=== PATIENT | male | born 1950 | race Caucasian/White ===

== ENCOUNTER 2020-06-06 09:20 | Outpatient (REF) | payer MEDICARE, SELFPAY ==
[2020-06-06 11:12] LABS: Hematocrit 41.8 % (42-52); Hemoglobin 13.8 g/dl (14.0-18.0); Mean Corpuscular Hemoglobin 29.6 pg (27.0-33.0); Mean Corpuscular Volume 89.7 fL (80-98); Mean Platelet Volume 11.2 fL (9.4-12.4); Platelet Count 213 X10*3/uL (160-400); Red Blood Count 4.66 X10*6/uL (4.60-5.80); Red Cell Distribution Width 12.6 % (11.0-16.0); White Blood Count 5.9 X10*3/uL (4.8-10.8)
[2020-06-06 17:52] LABS: Alanine Aminotransferase 29 U/L (0-40); Albumin Level 4.4 g/dL (3.5-5.0); Alkaline Phosphatase 54 U/L (39-117); Anion Gap 11 (12-20); Aspartate Amino Transferase 20 U/L (5-37); Bilirubin Total 0.9 mg/dL (0.0-1.0); Blood Urea Nitrogen 16 mg/dL (9-16); Calcium 9.2 mg/dL (8.4-10.2); Carbon Dioxide 30 mmol/L (22-29); Chloride 105 mmol/L (96-108); Cholesterol 203 mg/dL; Estimated Glomerular Filt Rate > 60; Glucose Fasting 110 mg/dL (60-99); HDL Cholesterol 48 mg/dL; LDL Cholesterol Calculated 134 mg/dl; Sodium 142 mmol/L (135-145); Total Protein 6.7 g/dL (6.5-8.0); Triglycerides 107 mg/dL
[2020-06-06 18:06] LABS: Prostate Specific Antigen 1.64 ng/mL (<0.05-4.0)
== END 2020-06-06 09:21 | disposition home or self-care (01) ==
LOC: HO.MANLDS 09:20
PROVIDERS: PCP Internal Medicine; Visit Provider Internal Medicine
DX: Z12.5 Encounter for screening for malignant neoplasm of prostate (principal); E78.5 Hyperlipidemia, unspecified
CPT/HCPCS: 36415; 80053; 80061; 84153; 85027

== ENCOUNTER 2020-11-19 09:09 | Outpatient (REF) | payer MEDICARE, SELFPAY ==
[2020-11-19 11:21] LABS: MANUAL DIFF FLAG NO
[2020-11-19 11:41] LABS: Basophils Absolute Auto 0.1 X10*3/uL (0.0-0.2); Basophils Percent Auto 1.2 % (0-2); Eosinophils Absolute Auto 0.7 X10*3/uL (0.0-0.4); Eosinophils Percent Auto 9.6 % (0-4); Hematocrit 43.8 % (42-52); Hemoglobin 14.5 g/dl (14.0-18.0); Imm Gran Abs Auto 0.03 X10*3/uL (0.00-0.03); Imm Gran Pct Auto 0.4 % (0.0-0.4); Lymphocytes Absolute Auto 2.1 X10*3/uL (1.2-4.9); Lymphocytes Percent Auto 28.5 % (20-40); Mean Corpuscular HGB Conc 33.1 g/dl (31.0-36.0); Mean Corpuscular Hemoglobin 29.8 pg (27.0-33.0); Mean Corpuscular Volume 89.9 fL (80-98); Mean Platelet Volume 11.1 fL (9.4-12.4); Monocytes Absolute Auto 0.7 X10*3/uL (0.1-1.2); Monocytes Percent Auto 9.1 % (2-11); Neutrophils Absolute Auto 3.8 X10*3/uL (2.0-8.3); Neutrophils Percent Auto 51.2 % (45-73); Platelet Count 228 X10*3/uL (160-400); Red Blood Count 4.87 X10*6/uL (4.60-5.80); Red Cell Distribution Width 12.4 % (11.0-16.0); White Blood Count 7.4 X10*3/uL (4.8-10.8)
[2020-11-19 14:34] LABS: Alanine Aminotransferase 22 U/L (0-40); Albumin Level 4.6 g/dL (3.5-5.0); Alkaline Phosphatase 58 U/L (39-117); Anion Gap 12 (12-20); Aspartate Amino Transferase 15 U/L (5-37); Bilirubin Total 0.5 mg/dL (0.0-1.0); Blood Urea Nitrogen 18 mg/dL (9-16); Calcium 9.4 mg/dL (8.4-10.2); Carbon Dioxide 28 mmol/L (22-29); Chloride 105 mmol/L (96-108); Cholesterol 200 mg/dL; Estimated Glomerular Filt Rate > 60; Glucose Fasting 112 mg/dL (60-99); HDL Cholesterol 56 mg/dL; LDL Cholesterol Calculated 120 mg/dl; Potassium 4.2 mmol/L (3.3-5.1); Sodium 141 mmol/L (135-145); Total Protein 6.8 g/dL (6.5-8.0); Triglycerides 122 mg/dL
== END 2020-11-19 09:10 | disposition home or self-care (01) ==
LOC: HO.MANLDS 09:09
PROVIDERS: PCP Internal Medicine; Visit Provider Internal Medicine
DX: Z00.00 Encounter for general adult medical examination without abnormal findings (principal); Z12.5 Encounter for screening for malignant neoplasm of prostate; E78.5 Hyperlipidemia, unspecified
CPT/HCPCS: 36415; 80053; 80061; 84153; 85025

== ENCOUNTER 2021-06-03 09:14 | Outpatient (REF) | payer MEDICARE, SELFPAY ==
[2021-06-03 11:05] LABS: MANUAL DIFF FLAG NO
[2021-06-03 11:07] LABS: Basophils Absolute Auto 0.2 X10*3/uL (0.0-0.2); Basophils Percent Auto 1.8 % (0-2); Eosinophils Absolute Auto 1.3 X10*3/uL (0.0-0.4); Hematocrit 42.5 % (42.0-52.0); Imm Gran Abs Auto 0.04 X10*3/uL (0.00-0.03); Imm Gran Pct Auto 0.5 % (0.0-0.4); Lymphocytes Absolute Auto 2.1 X10*3/uL (1.2-4.9); Lymphocytes Percent Auto 24.2 % (20-40); Mean Corpuscular HGB Conc 32.9 g/dl (31.0-36.0); Mean Corpuscular Hemoglobin 29.8 pg (27.0-33.0); Mean Corpuscular Volume 90.4 fL (80.0-98.0); Mean Platelet Volume 10.8 fL (9.4-12.4); Monocytes Absolute Auto 0.6 X10*3/uL (0.1-1.2); Monocytes Percent Auto 7.5 % (2-11); Neutrophils Absolute Auto 4.4 x10*3/uL (2.0-8.3); Platelet Count 223 X10*3/uL (160-400); Red Cell Distribution Width 12.3 % (11.0-16.0); White Blood Count 8.5 X10*3/uL (4.8-10.8)
[2021-06-03 11:29] LABS: Alanine Aminotransferase 25 U/L (0-40); Albumin Level 4.5 g/dL (3.5-5.0); Alkaline Phosphatase 58 U/L (39-117); Anion Gap 9 (12-20); Aspartate Amino Transferase 17 U/L (5-37); Bilirubin Total 0.6 mg/dL (0.0-1.0); Blood Urea Nitrogen 17 mg/dL (9-16); Calcium 9.7 mg/dL (8.4-10.2); Carbon Dioxide 30 mmol/L (22-29); Chloride 105 mmol/L (96-108); Cholesterol 169 mg/dL; Estimated Glomerular Filt Rate > 60; Glucose Fasting 117 mg/dL (60-99); HDL Cholesterol 41 mg/dL; LDL Cholesterol Calculated 105 mg/dl; Sodium 140 mmol/L (135-145); Triglycerides 117 mg/dL
[2021-06-03 11:36] LABS: Prostate Specific Antigen 1.71 ng/mL (<0.05-4.0)
== END 2021-06-03 09:15 | disposition home or self-care (01) ==
LOC: HO.MANLDS 09:14
PROVIDERS: PCP Internal Medicine; Visit Provider Internal Medicine
DX: Z00.00 Encounter for general adult medical examination without abnormal findings (principal); E78.5 Hyperlipidemia, unspecified; Z12.5 Encounter for screening for malignant neoplasm of prostate
CPT/HCPCS: 36415; 80053; 80061; 84153; 85025

== ENCOUNTER 2022-02-07 08:03 | Outpatient (REF) | payer MEDICARE, SELFPAY ==
[2022-02-07 12:22] LABS: Estimated Average Glucose 123 mg/dL; Hemoglobin A1c % 5.9 %
[2022-02-07 13:47] LABS: Alanine Aminotransferase 21 U/L (0-40); Alkaline Phosphatase 55 U/L (39-117); Anion Gap 10 (12-20); Aspartate Amino Transferase 14 U/L (5-37); Bilirubin Total 0.8 mg/dL (0.0-1.0); Blood Urea Nitrogen 16 mg/dL (9-16); Calcium 9.1 mg/dL (8.4-10.2); Carbon Dioxide 30 mmol/L (22-29); Chloride 105 mmol/L (96-108); Estimated Glomerular Filt Rate > 60; Glucose Random 109 mg/dL (60-115); Potassium 4.4 mmol/L (3.3-5.1); Sodium 141 mmol/L (135-145)
== END 2022-02-07 08:04 | disposition home or self-care (01) ==
LOC: HO.MANLDS 08:03
PROVIDERS: Visit Provider Internal Medicine
DX: E78.5 Hyperlipidemia, unspecified (principal)
CPT/HCPCS: 36415; 80053; 83036

== ENCOUNTER 2023-05-15 08:18 | Outpatient (REF) | payer MEDICARE, SELFPAY ==
[2023-05-15 13:18] LABS: MANUAL DIFF FLAG NO
[2023-05-15 13:34] LABS: Basophils Absolute Auto 0.1 X10*3/uL (0.0-0.2); Basophils Percent Auto 1.4 % (0-2); Eosinophils Absolute Auto 0.5 X10*3/uL (0.0-0.4); Eosinophils Percent Auto 8.1 % (0-4); Hematocrit 41.9 % (42.0-52.0); Hemoglobin 13.9 g/dl (14.0-18.0); Imm Gran Abs Auto 0.03 X10*3/uL (0.00-0.03); Imm Gran Pct Auto 0.5 % (0.0-0.4); Lymphocytes Absolute Auto 2.2 X10*3/uL (1.2-4.9); Lymphocytes Percent Auto 32.9 % (20-40); Mean Corpuscular HGB Conc 33.2 g/dl (31.0-36.0); Mean Corpuscular Hemoglobin 29.7 pg (27.0-33.0); Mean Corpuscular Volume 89.5 fL (80.0-98.0); Mean Platelet Volume 11.1 fL (9.4-12.4); Monocytes Absolute Auto 0.6 X10*3/uL (0.1-1.2); Monocytes Percent Auto 9.3 % (2-11); Neutrophils Absolute Auto 3.2 x10*3/uL (2.0-8.3); Neutrophils Percent Auto 47.8 % (45-73); Platelet Count 206 X10*3/uL (160-400); Red Blood Count 4.68 X10*6/uL (4.60-5.80); Red Cell Distribution Width 12.9 % (11.0-16.0); White Blood Count 6.7 X10*3/uL (4.8-10.8)
[2023-05-15 13:40] LABS: Estimated Average Glucose 111 mg/dL; Hemoglobin A1c % 5.5 % (<6.0)
[2023-05-15 14:17] LABS: Alanine Aminotransferase 22 U/L (0-40); Albumin Level 4.4 g/dL (3.5-5.0); Alkaline Phosphatase 54 U/L (39-117); Anion Gap 12 (12-20); Aspartate Amino Transferase 17 U/L (5-37); Bilirubin Total 0.7 mg/dL (0.0-1.0); Blood Urea Nitrogen 23 mg/dL (9-16); Calcium 9.5 mg/dL (8.4-10.2); Carbon Dioxide 28 mmol/L (22-29); Chloride 108 mmol/L (96-108); Cholesterol 204 mg/dL (<200); Estimated Glomerular Filt Rate > 60; Glucose Random 109 mg/dL (60-115); HDL Cholesterol 47 mg/dL (>40); LDL Cholesterol Calculated 127 mg/dL (<100); Potassium 4.2 mmol/L (3.3-5.1); Sodium 144 mmol/L (135-145); Total Protein 6.8 g/dL (6.5-8.0); Triglycerides 153 mg/dL (<150)
[2023-05-15 14:21] LABS: Prostate Specific Antigen 1.48 ng/mL (<0.05-4.0)
== END 2023-05-15 08:19 | disposition home or self-care (01) ==
LOC: HO.MANLDS 08:18
PROVIDERS: Visit Provider Physician Assistant
DX: Z12.5 Encounter for screening for malignant neoplasm of prostate (principal); E78.5 Hyperlipidemia, unspecified
CPT/HCPCS: 36415; 80053; 80061; 83036; 84153; 85025

== ENCOUNTER 2023-08-31 08:58 | Outpatient (REF) | payer MEDICARE, SELFPAY ==
[2023-08-31 13:33] LABS: MANUAL DIFF FLAG NO
[2023-08-31 13:54] LABS: Basophils Absolute Auto 0.1 X10*3/uL (0.0-0.2); Basophils Percent Auto 1.4 % (0-2); Eosinophils Absolute Auto 0.6 X10*3/uL (0.0-0.4); Eosinophils Percent Auto 9.4 % (0-4); Hematocrit 42.6 % (42.0-52.0); Hemoglobin 14.1 g/dl (14.0-18.0); Imm Gran Abs Auto 0.04 X10*3/uL (0.00-0.03); Imm Gran Pct Auto 0.6 % (0.0-0.4); Lymphocytes Absolute Auto 1.7 X10*3/uL (1.2-4.9); Lymphocytes Percent Auto 26.3 % (20-40); Mean Corpuscular HGB Conc 33.1 g/dl (31.0-36.0); Mean Corpuscular Hemoglobin 29.9 pg (27.0-33.0); Mean Corpuscular Volume 90.3 fL (80.0-98.0); Mean Platelet Volume 11.6 fL (9.4-12.4); Monocytes Absolute Auto 0.5 X10*3/uL (0.1-1.2); Neutrophils Absolute Auto 3.4 x10*3/uL (2.0-8.3); Neutrophils Percent Auto 54.3 % (45-73); Platelet Count 191 X10*3/uL (160-400); Red Blood Count 4.72 X10*6/uL (4.60-5.80); Red Cell Distribution Width 12.9 % (11.0-16.0); White Blood Count 6.3 X10*3/uL (4.8-10.8)
[2023-08-31 14:10] LABS: Alanine Aminotransferase 25 U/L (0-40); Albumin Level 4.3 g/dL (3.5-5.0); Alkaline Phosphatase 64 U/L (39-117); Anion Gap 15 (12-20); Aspartate Amino Transferase 22 U/L (5-37); Bilirubin Total 0.6 mg/dL (0.0-1.0); Blood Urea Nitrogen 16 mg/dL (9-16); C Reactive Protein 0.45 mg/dL (< or = 0.50); Calcium 9.9 mg/dL (8.4-10.2); Carbon Dioxide 28 mmol/L (22-29); Chloride 104 mmol/L (96-108); Estimated Glomerular Filt Rate > 60; Glucose Random 129 mg/dL (60-115); Potassium 4.1 mmol/L (3.3-5.1); Sodium 143 mmol/L (135-145); Total Protein 6.9 g/dL (6.5-8.0)
[2023-08-31 14:31] LABS: Erythrocyte Sedimentation Rate 7 MM/HR (0-15)
[2023-09-01 17:53] LABS: Lyme Abs Screen <0.90 index
[2023-09-02 03:33] LABS: Immunoglobulin E 29 kU/L (<OR=114)
[2023-09-10 13:53] LABS: A. Phagocytophilum Ab IgG <1:64 (<1:64); A. Phagocytophilum Ab IgM <1:20 (<1:20); E. Chaffeensis Ab IgG <1:64 (<1:64); E. Chaffeensis Ab IgM <1:20 (<1:20)
== END 2023-08-31 08:59 | disposition home or self-care (01) ==
LOC: HO.MANLDS 08:58
PROVIDERS: Visit Provider Physician Assistant
DX: L28.2 Other prurigo (principal); L25.9 Unspecified contact dermatitis, unspecified cause
CPT/HCPCS: 36415; 80053; 82785; 85025; 85652; 86140; 86617; 86618; 86666

== ENCOUNTER 2024-06-06 08:52 | Outpatient (REF) | payer MEDICARE, SELFPAY ==
--- OUTSIDE RECORDS SUMMARY | 2024-06-06 09:39 | XMS_ITS | Data Portability ---
Author Organization [facility] Home Service Address [address] [place] [phone] Assessment Encounter Date Assessment Date Assessment LastModified by Organization Details LastModified Time 06/08/2020 06/08/2020 [id number] [place] [id number] (SPORTS ANNOUNCER) [facility] MODERATE MUST MEET 2 OUT OF 3 ELEMENTS: PROBLEMS, DATA OR RISK ELEMENT 1: PROBLEMS ADDRESSED OR 2 OR MORE STABLE CHRONIC ILLNESSES OR OR OR ELEMENT 2: DATA MUST MEET 1 OF 3 CATEGORIES CATEGORY 1: REVIEW OF PRIOR EXTERNAL NOTES, REVIEW OF RESULTS, ORDERING OF EACH TEST, ASSESSMENT REQUIRING INDEPENDENT HISTORIAN OR CATEGORY 2: OR CATEGORY 3: ELEMENT 3: RISK RISK OF COMPLICATIONS AND/OR MORBIDITY OR MORTALITY OF PATIENT MANAGEMENT PROVIDER MUST THOROUGHLY DOCUMENT EACH ELEMENT THAT IS COVERED Not available 06/08/2020 09:57:51 12/31/2020 12/31/2020 reviewed lab in detail Not available 12/31/2020 13:46:50 06/05/2021 06/05/2021 [id number] [place] [id number] (SPORTS ANNOUNCER) [facility] MODERATE MUST MEET 2 OUT OF 3 ELEMENTS: PROBLEMS, DATA OR RISK ELEMENT 1: PROBLEMS ADDRESSED 1 OR MORE CHRONIC ILLNESS WITH EXACERBATION OR 2 OR MORE STABLE CHRONIC ILLNESSES OR 1 UNDIAGNOSED NEW PROBLEM OR 1 ACUTE ILLNESS W/SYMPTOMS OR 1 ACUTE COMPLICATED INJURY ELEMENT 2: DATA MUST MEET 1 OF 3 CATEGORIES CATEGORY 1: REVIEW OF PRIOR EXTERNAL NOTES, REVIEW OF RESULTS, ORDERING OF EACH TEST, ASSESSMENT REQUIRING INDEPENDENT HISTORIAN OR CATEGORY 2: INDEPENDENT INTERPRETATION OF TESTS BY ANOTHER PHYSICIAN OR SPECIALIST OR CATEGORY 3: DISCUSSION OF MGT OR TEST INTERPRETATION W/EXTERNAL PHYSICIAN OR SPECIALIST ELEMENT 3: RISK RISK OF COMPLICATIONS AND/OR MORBIDITY OR MORTALITY OF PATIENT MANAGEMENT PROVIDER MUST THOROUGHLY DOCUMENT EACH ELEMENT THAT IS COVERED Not available 06/05/2021 11:01:37 Plan of Treatment Reminders Order Date Submit Date Provider Last Modified By Organization Details Last Modified Time Details Appointments ANNUAL EXAM 2024 09:00A M DR WEST Not available Not available Not available Lab CMP, serum or plasma 2021 [facility], [address] [place] [address], [id number], 02/10/2022 11:23:58 HbA1c (hemoglob in A1c), blood 2021 [facility], [address] [place] [address], [id number], 06/05/2021 11:10:25 Referral None recorded. Procedures None recorded. Surgeries None recorded. Imaging None recorded. Medication Orders omeprazol e 20 mg capsule,d elayed release 2020 [id number], [address], [place], [id number], 02/14/2022 10:39:36 simvastat in 40 mg tablet 2020 [facility] #[id number], [address], [place], [id number], 06/08/2020 10:03:38 Patient TargetsNo targets recorded. Patient Instructions Encounter Date Encounter Id Patient Instructions Last Modified By Organization Details Last Modified Time 06/08/2020 [id number] esophageal spasm : care instructions Not available 06/08/2020 09:59:31 high cholesterol : care instructions Not available 06/08/2020 09:59:31 06/05/2021 [id number] gastroesophageal reflux disease (GERD): care instructions Not available 06/05/2021 11:07:08 high cholesterol : care instructions Not available 06/05/2021 11:07:08 Reason for Referral None Reported. Results Created Date Observation Date Name Description Value Unit Range Abnormal Flag Note LastModifiedBy Organization Detail LastModifiedTime Result Notes None recorded. Problems Name Problem SNOMED Code Status Onset Date Resolution Date Notes Provider Name and Address Organization Details Recorded Time Hyperlipid emia 23200258 Active 2017 Not Available [facility] 1 12:46:08 Adenomatou s polyp of colon 592540824 Active 04/2009 Not Available [facility] 1 12:46:08 Degenerati on of lumbar interverte bral disc 28905510 Active 2017 Not Available [facility] 1 12:46:08 Esophageal dysmotilit y 645320968 Active 2018 Not Available [facility] 12:46:08 Gastroesop hageal reflux disease 244277063 Active 2020 Not Available [facility] 12:46:08 Acute bronchitis 13440341 Active 2022 NIMISHA SAUCEDO [address] [place] [address], [phone], [facility] 3 11:15:22 Acute sinusitis 57520902 Active 2023 NIMISHA SAUCEDO [address] [place] [address], [phone], [facility] Internal [facility] 4 16:43:01 Pruritic rash 78702757 Active 2023 NIMISHA SAUCEDO [address] [place] [address], [phone], [facility] 4 10:22:01 Contact dermatitis 99015074 Active 2023 NIMISHA SAUCEDO [address] [place] [address], [phone], [facility] 4 10:23:22 Problem Notes None recorded. Procedures Surgical History Date Name Laterality Status Provider Name and Address Organization Details Recorded Time 9 Colonoscopy completed Trina [facility] 12/15/2018 13:37:02 4 Colonoscopy completed Trina [facility] 02/08/2018 08:23:23 Imaging Results None recorded. Procedure Notes None recorded. Medical Equipment None Reported. Allergies Allergen ID Allergen Name Allergen Category Reaction Reaction Severity Criticality Documentation Date Start Date Code Code System Note Provider Name and Address Organization Details Recorded Time 2586 Cipro medicatio n Not available Not available Not available 02/08/201897129 3 RxNorm c-dif f Trina yousif [place] - [facility] 8 08:22:06 Medications Name Sig Start Date Stop Date Status Note LastModified by Organization Details LastModified Time azithromyc in 250 mg tablet TAKE 2 TABLETS BY MOUTH TODAY, THEN TAKE 1 TABLET DAILY FOR 4 DAYS DIRECTED active Not Available Not Available No t Available prednisone 20 mg tablet 02/08 completed Not Available Not Available Not Available simvastati n 40 mg tablet TAKE 1 TABLET BY MOUTH DAILY. 2024 active Not Available Not Available Not Avai lable Aleve 220 mg tablet Take 1 tablet every 12 hours by oral route. active Take one daily in AM; OTC Not Available Not Available Not Available simvastati n 20 mg tablet TAKE 2 TABLETS ONCE DAILY 04/02 completed Not Available Not Available Not Available acyclovir 5 % topical ointment APPLY TOPICALL Y TO THE AFFECTED AREA 6 TIMES PER DAY EVERY 3 HOURS active Not Available Not Available No t Available omeprazole 20 mg capsule,de layed release Take 1 capsule every day by oral route for 30 days. active as needed Not Available Not Available Not Available methylpred nisolone 4 mg tablets in a dose pack TAKE 6 TABLETS ON DAY 1 DIRECTED ON PACKAGE AND DECREASE BY 1 TAB EACH DAY FOR A TOTAL OF 6 DAYS active Not Available Not Available No t Available amoxicilli n 875 mg-potassi um clavulanat e 125 mg tablet 02/08 completed Not Available Not Available Not Available Ventolin HFA 90 mcg/actuat ion aerosol inhaler Inhale 2 puffs every 6 hours by inhalati on route as needed. 06/08 completed Not Available Not Available Not Available GaviLyte-G 236 gram-22.74 gram-6.74 gram-5.86 gram oral solution 05/23 completed Not Available Not Available Not Available Vitals Date Recorded Body weight Heart rate Oxygen saturation Oxygen saturation in Arterial blood by Pulse oximetry Systolic blood pressure Diastolic blood pressure Provider Name and Address Organization Details Last Updated DateTime 1 77669.5 2 g 101 /min 96 % 96 % 132 mm[Hg] 72 mm[Hg] Samson West, DO [address] [place] [address], [phone] [facility] 1 09:46:20 Date Recorded Body weight Body mass index (BMI) Body height Heart rate Oxygen saturation Oxygen saturation in Arterial blood by Pulse oximetry Systolic blood pressure Diastolic blood pressure Provider Name and Address Organization Details Last Updated DateTime 1 99198.6 9 g 27.8 kg/m2 182.25 cm 102 /min 97 % 97 % 130 mm[Hg] 74 mm[Hg] Samson West, DO [address] [place] [address], [phone] 7[facility] 1 13:32:52 Date Recorded Body height Body mass index (BMI) Body weight Heart rate Oxygen saturation Oxygen saturation in Arterial blood by Pulse oximetry Systolic blood pressure Diastolic blood pressure Provider Name and Address Organization Details Last Updated DateTime 2 182.25 cm 28.2 kg/m2 44315.5 4 g 90 /min 97 % 97 % 130 mm[Hg] 64 mm[Hg] Samson West, DO [address] [place] [address], [phone] [facility] 2 10:39:11 Date Recorded Body height Body mass index (BMI) Body weight Oxygen saturation Oxygen saturation in Arterial blood by Pulse oximetry Heart rate Systolic blood pressure Diastolic blood pressure Provider Name and Address Organization Details Last Updated DateTime 2 182.25 cm 27.6 kg/m2 55378.3 8 g 98 % 98 % 97 /min 120 mm[Hg] 72 mm[Hg] Seda Ashraf [facility] Internal [facility] 2 10:42:03 Date Recorded Body weight Heart rate Oxygen saturation Oxygen saturation in Arterial blood by Pulse oximetry Systolic blood pressure Diastolic blood pressure Provider Name and Address Organization Details Last Updated DateTime 4 18162.9 9 g 102 /min 96 % 96 % 140 mm[Hg] 72 mm[Hg] Faye Montemayor [facility] 4 10:22:12 Social History Question Answer Notes LastModified by Organizat ion Details LastModified Time Tobacco Smoking Status Never Smoker Not Available [facility] 01/03/2020 03:36:24 What Was The Date Of Your Most Recent Tobacco Screening? 02/14/2022 [email or web address] Information not available 02/14/2022 Sex: Unknown Functional Status None recorded. Mental Status None recorded. Family History Nothing Reported. Medical History Condition Response Coronary Artery Disease N Gout N Other N Kidney Stones N Blood Diseases N Blood Transfusion N Breast Cancer N Lung Disease N Depression N COPD N Defects or Inherited Disease N Anxiety Disorder N Muscle, Joint, or Bone Problems N Obesity N Vision or Eye Problems N Arthritis N Infertility N Polyps N Mental Disorder N Cancer N Stroke N Varicosities N Endometriosis N Bladder or Kidney Problems N High Cholesterol N Liver Disease N Fibromyalgia N Headaches N Kidney Disease N Allergies/Hayfever N Heart Problems N Hospitalizations N Thyroid Problems N GI Problems N Eating Disorder N Skin Problems N Anemia N MRSA exposure N Constipation N Mental Illness N Diabetes N Ovarian Cancer N Seizures/Epilepsy N Tuberculosis N Congestive Heart Failure (CHF) N Eczema N Abuse/Domestic Violence N Diverticulitis N Asthma N Reflux/GERD N Hepatitis N Heart Disease N Pulmonary Embolism N Hypertension N Chicken Pox N Autism Spectrum Disorder (ASD) N Osteoporosis N Immunizations Vaccine Type Date Status Note Provider Nam e and Address Organization Details Recorded Time Influenza, split virus, quadrivalent, preservative 1 completed Nisha yousif [facility] 02/14/2022 10:25:15 COVID-19, mRNA, LNP-S, PF, 30 mcg/0.3 mL dose 1 completed Nisha yousif [facility] 02/14/2022 10:25:15 Tdap 1 completed Samson West, DO [address] [facility], [place], [address], [facility] 01/24/2021 16:23:00 Pneumococcal conjugate PCV 13 1 completed Nisha yousif [facility] 02/14/2022 10:25:15 SARS-COV-2 (COVID-19) vaccine, UNSPECIFIED 3 completed Mary yousif [facility] 12/31/2022 11:34:23 influenza, unspecified formulation 3 completed Mary Koenig null, [facility] 12/31/2022 11:34:38 Influenza, split virus, quadrivalent, preservative 9 completed [facility] 02/14/2022 10:25:15 Influenza, split virus, quadrivalent, preservative 0 completed Nisha Menard [facility], [facility] 02/14/2022 10:25:15 zoster, unspecified formulation 0 completed Nisha Menard [facility], [facility] 02/14/2022 10:25:15 zoster, unspecified formulation 0 completed Nisha Menard [facility] 02/14/2022 10:25:15 COVID-19, mRNA, LNP-S, PF, 30 mcg/0.3 mL dose 1 [facility]/14/[facility]22 10:25:15 COVID-19, mRNA, LNP-S, PF, 30 mcg/0.3 mL dose 1 completed Nisha Menard [facility] 02/14/2022 10:25:15 Past Encounters Encounter ID Performer Location Encounter Start Date Encounter Closed Date Diagnosis/Indication Diagnosis SNOMED-CT Code Diagnosis ICD10 Code Diagnosis Note [id number] Samson West DO [facility] [address],[place] [address] 02/08/2018 09:57:57 02/08/2018 10:23:40 Degeneration of lumbar intervertebral disc 56256830 M51.36 about the same and is overall staying about the same Hyperlipidemia 04813184 E78.5 will get lab work [id number] May KIM Sim [facility] [address] [place] [address],[place] [address] 04/02/2018 13:55:18 04/02/2018 14:22:34 Hyperlipidemia 15558516 E78.5 utd on labs on melba English on of lumbar intervertebral disc 72436419 M51.36 no meds/quiet Upper resp iratory infection 69559050 J06.9 unlikely pneumonia mucinex fluids f/u if needed [id number] Shefali Gómez NP, S [facility] [address] [facility] [place] [address] 05/12/2018 13:56:47 05/12/2018 14:51:46 Chronic cough 20173914 R05 Gastroesop hageal reflux disease 306945167 K21.9 Hyperlipidemia 89682736 E78.2 well [place] simvastati n [id number] Shefali Gómez NP, S [facility] [address] [facility], [place] [facility] [place] [address] 05/25/2018 13:27:22 05/25/2018 13:45:43 Chronic cough 74868454 R05 [id number] Shefali Gómez NP, [facility] [address] [facility], [place] [facility] [place] [address] 06/28/2018 10:13:26 06/28/2018 12:34:34 Esophageal dysmotility 185195095 K22.4 Skin lesion 91401078 L98 .9 healing [id number] Samson West [facility] [address] [facility], [facility] [place] [address] 05/24/2019 10:59:07 05/24/2019 12:02:23 Adult health examination 393159778 Z00.00 Active or passive immunization 612207403 Z23 Hepatitis C screening 41 6237069 Z11.59 Hyperglycemia 03579152 R 73.9 [id number] Samson West [facility] [address] [facility], [facility] [facility] [place] [address] 06/08/2020 09:39:57 06/08/2020 10:45:26 Hyperlipidemia 53962401 E78.5 will get lab work tolerates the medication no cp breathing ok Degenerati on of lumbar intervertebral disc 73713534 M51.36 about the same and is overall staying about the same Esophageal dysmotility 871667874 K22.4 currently stable and no choking episodes Gastroesop hageal reflux disease 327985116 K21.9 still symptomati c when he is less careful at night with diet and late night eating [id number] Samson West DO [facility] [address] [facility] [address] [address] 12/31/2020 13:25:32 12/31/2020 14:11:34 Active or passive immunization 374166232 Z23 utd Adult [facility] th examination 434258474 Z00.00 doing great and is active and remains so [id number] Samson West DO [facility] [address] [facility] [address] [address] 06/05/2021 10:29:24 06/05/2021 11:30:18 Active or passive immunization 369694001 Z23 Started pneumo Vaccine will be due for the second shot dec Degenerati on of lumbar intervertebral disc 05285521 M51.36 about the same and is overall staying about the same Hyperlipidemia 61335572 E78.5 will get lab work tolerates the medication no cp breathing ok reviewed lab in detailtalk ed about glucosewe will cont to follow no evid of ds at this point he will try to eat better and lose some wgt Gastroesop hageal reflux disease 891875861 K21.9 still symptomati c when he is less careful at night with diet and late night eating [id number] Samson West DO [facility] [address] [facility] [address] [address] 02/14/2022 10:25:05 02/14/2022 14:50:20 Active or passive immunization 063425849 Z23 Started pneumo Vaccine will be due for the second shot dec Adult heal th examination 929243315 Z00.00 doing great and is active and remains sooffered ct heart [id number] NIMISHA SAUCEDO [facility] [address] [facility] [address] [address] 05/20/2023 10:13:37 05/20/2023 11:26:59 Adult health examination 771102197 Z00.00 BP is stable at home Health Concerns Section Related Observation LastModified by Organization Detai ls LastModified Time None Recorded Concern Status LastModified by Organization Details LastModified Time None Recorded Advance Directives Directive None Recorded Payers Encounter Date Sequence Insurance Name Policy Number Policy Dumont Covered Member ID Dumont Member ID Guarantor Name 06/08/2020 2 [place] [id number] Blas Deleon Guadalupe [id number] Blas A Guadalupe 06/08/2020 1 [place] Blas Deleon Guadalupe [id number] Blas A Guadalupe 12/31/2020 2 [place] [id number] Blas Deleon Guadalupe [id number] Bals Pancho Guadalupe 12/31/2020 1 [place] Blas Deleon Guadalupe [id number] Blas A Guadalupe 06/05/2021 2 [place] [id number] Blas Deleon Guadalupe [id number] Blas Deleon Guadalupe 06/05/2021 1 [place] Blas Deleon Guadalupe [id number] Blas A Guadalupe 02/14/2022 2 [place] [id number] Blas Deleon Guadalupe [id number] Blas Pancho Guadalupe 02/14/2022 1 [place] Blas Deleon Guadalupe [id number] Blas Pancho Guadalupe 05/20/2023 2 [place] [id number] Blas Deleon Guadalupe [id number] Blas A Guadalupe 05/20/2023 1 [place] Blas Deleon Guadalupe [id number] 7 Blas Pancho Guadalupe Notes Date Note Type Note Provider Name a nd Address Organization Details Recorded Time 1 text/html here for rechk feeling well some extra weight no cp no sob had spent 2 mo in [facility] Samson West, DO [address] [facility], [place], [address], [facility] 06/08/2020 10:03:52 2 text/html relates 2 weeks ago had some GI upset and now having some nasal congestionseems to be lessdidnt test for covid and is now here in office (!)otherwise he feels okThe patient denies little pleasure in doing thing or things the find enjoyable, feeling depressed, difficulties sleeping, feeling tired or having little energy, change in appetite, feeling guilty, overwhelmed or unmotivated. The patient denies suicidal ideation, thoughts of hurting themselves or others. Their mood is appropriate, they show good judgement and clear understanding of the conversation. They are orientated to time, place and person. They are not expressing any concerning thoughts or actions that would need further investigation and treatment for mental health. Samson West DO [address] [place] [address], [phone], [facility] 06/05/2021 11:11:42 2 text/html Annual WellnessReported bypatient.Diet and Nutrition:healthy diet Fracture Risk:no history of fractures; no recent explained fracture; no sudden unexplained fractures; no previous musculoskeletal injuries Physical Activity:exercises on a regular basis; recent increase in physical activity; good physical condition Additional Lifestyle Factors:no tobacco use; no alcohol intake; stopped drinking alcohol Depression Risk:never feels sad, empty, or tearful; no loss of interest in activities; no significant changes in weight; no sleep disturbances or insomnia; no agitation; no loss of energy; no feelings of worthlessness or guilt; no thoughts of suicide; no history of depression; no history of mood disorders Hearing:no loss of hearing Vision:no vision problems Samson West DO [address] [place] [address], [address], [facility] 02/14/2022 11:26:06 4 text/html Annual WellnessReported bypatient.Diet and Nutrition:healthy diet; discussed vitamin and supplement use; discussed portion control; discussed maintaining calcium balance; discussed diet improvement Fracture Risk:no history of fractures; no recent explained fracture; no sudden unexplained fractures; no previous musculoskeletal injuries Physical Activity:exercises on a regular basis; recent increase in physical activity; good physical condition; discussed weightbearing activities; discussed exercise habits Additional Lifestyle Factors:no tobacco use; drinks alcohol (mild-moderate) Depression Risk:never feels sad, empty, or tearful; no loss of interest in activities; no significant changes in weight; no sleep disturbances or insomnia; no agitation; no loss of energy; no feelings of worthlessness or guilt; no thoughts of suicide; no history of depression; no history of mood disorders Hearing:no loss of hearing Vision:no vision problemsNotes:last dental appt was last fall (goes every 6 mos) NIMISHA SAUCEDO [address] [place] [address], [address], [facility] 05/20/2023 10:45:19
[2024-06-06 13:09] LABS: MANUAL DIFF FLAG NO
[2024-06-06 13:20] LABS: Basophils Absolute Auto 0.1 X10*3/uL (0.0-0.2); Basophils Percent Auto 1.6 % (0-2); Eosinophils Absolute Auto 0.6 X10*3/uL (0.0-0.4); Eosinophils Percent Auto 11.1 % (0-4); Hematocrit 38.9 % (42.0-52.0); Hemoglobin 13.4 g/dl (14.0-18.0); Imm Gran Abs Auto 0.04 X10*3/uL (0.00-0.03); Imm Gran Pct Auto 0.7 % (0.0-0.4); Lymphocytes Absolute Auto 1.7 X10*3/uL (1.2-4.9); Lymphocytes Percent Auto 29.3 % (20-40); Mean Corpuscular HGB Conc 34.4 g/dl (31.0-36.0); Mean Corpuscular Volume 87.2 fL (80.0-98.0); Mean Platelet Volume 11.3 fL (9.4-12.4); Monocytes Absolute Auto 0.5 X10*3/uL (0.1-1.2); Monocytes Percent Auto 8.3 % (2-11); Neutrophils Absolute Auto 2.8 x10*3/uL (2.0-8.3); Platelet Count 188 X10*3/uL (160-400); Red Blood Count 4.46 X10*6/uL (4.60-5.80); Red Cell Distribution Width 12.9 % (11.0-16.0); White Blood Count 5.8 X10*3/uL (4.8-10.8)
[2024-06-06 13:55] LABS: Prostate Specific Antigen 1.74 ng/mL (<0.05-4.0)
[2024-06-06 14:16] LABS: Alanine Aminotransferase 27 U/L (0-40); Albumin Level 4.3 g/dL (3.5-5.0); Alkaline Phosphatase 56 U/L (39-117); Anion Gap 10 (12-20); Aspartate Amino Transferase 32 U/L (5-37); Bilirubin Total 0.7 mg/dL (0.0-1.0); Blood Urea Nitrogen 20 mg/dL (9-16); Calcium 9.4 mg/dL (8.4-10.2); Carbon Dioxide 27 mmol/L (22-29); Chloride 108 mmol/L (96-108); Cholesterol 195 mg/dL (<200); Estimated Glomerular Filt Rate > 60; Glucose Random 111 mg/dL (60-115); HDL Cholesterol 47 mg/dL (>40); LDL Cholesterol Calculated 126 mg/dL (<100); Sodium 141 mmol/L (135-145); Total Protein 6.7 g/dL (6.5-8.0); Triglycerides 114 mg/dL (<150)
== END 2024-06-06 08:53 | disposition home or self-care (01) ==
LOC: HO.MANLDS 08:52
PROVIDERS: Visit Provider Internal Medicine
DX: Z12.5 Encounter for screening for malignant neoplasm of prostate (principal); E78.5 Hyperlipidemia, unspecified
CPT/HCPCS: 36415; 80053; 80061; 84153; 85025